=== PATIENT | male | born 1985 | race Caucasian/White ===

== ENCOUNTER → 2016-12-02 | Day surgery (SDC) | payer OTHER ==
[~2016-12-02] VITALS: Ht 182.9 cm; Wt 89.8 kg
[~2016-12-02] MED LIST: ACETAMINOPH W/CODEINE #3 TAB UD PO PRN; EPINEPHrine 1MG/ML INJ 30ML MD-VIAL As Ordered ONE; GLYCOPYRROLATE INJ 0.2 MG/ML 2 ML VIAL As Ordered ONE; LIDOCAINE 2% INJ 100 MG/5 ML SDV (FOR ANES.) As Ordered ONE; LIDOCAINE W/EPINEPHRINE 1% 20ML VIAL As Ordered ONE; LR 1,000 ML IV ONE; LR 1,000 ML IV SCH; METHYLENE BLUE 0.5% (5MG/ML) 10 ML AMP (PROVAYBLUE)(Q9968 PER 1MG) As Ordered ONE; MIDAZOLAM INJ 2 MG/2 ML VIAL (J2250) As Ordered ONE; MORPHINE 10 MG/ML 1ML VIAL IV PRN; NEOSTIGMINE 1MG/ML 5 ML SYRINGE (J2710) As Ordered ONE; NORC1TAB4 PO; ONDANSETRON 4MG/2ML VIAL (J2405) As Ordered ONE; ONDANSETRON 4MG/2ML VIAL (J2405) IV PRN; PERCOCET 5MG/325MG TAB PO PRN; PROPOFOL 200 MG/20 ML VIAL As Ordered ONE; ROCURONIUM BROMIDE 50 MG/5 ML VIAL/SYRINGE As Ordered ONE; dexameTHASONE 4 MG/ML 1ML VIAL (J1100) As Ordered ONE; fentaNYL 100 MCG/2 ML INJECTION (J3010) As Ordered ONE; fentaNYL 100 MCG/2 ML INJECTION (J3010) IV PRN
--- NOTE | 2016-12-02 08:33 | RO ---
DATE OF PROCEDURE: 12/02/2016 PREOPERATIVE DIAGNOSIS: Nasal septal deviation. POSTOPERATIVE DIAGNOSIS: Nasal septal deviation. OPERATIVE PROCEDURE: Septoplasty. SURGEON: Dr. Alvaro Winter BRANCH LEAD: ANESTHESIA: Under general anesthesia with the patient intubated, the patient was draped in the usual manner. I used pledgets of adrenaline 1:1000 and infiltrated with lidocaine with epinephrine. I made an incision anteriorly on the left side and elevated a subperichondrial and periosteal plane. I then elevated the periosteum off of the maxillary crest and vomer. I removed portions of the maxillary crest, ethmoid plate and vomer which were deviated. Once this was done, the septum was straight. I closed the incision with interrupted #4-0 chromic. The patient tolerated the procedure well. Less than 20 mL estimated blood loss. The patient was extubated and sent to the recovery room in excellent condition.
[2016-12-02 10:00] VITALS: BP 135/66
== END | disposition home or self-care (01) ==
LOC: M SDC 06:01
PROVIDERS: ATTEND Otolaryngology
DX: J34.2 Deviated nasal septum (principal); R06.83 Snoring; F41.9 Anxiety disorder, unspecified; M54.2 Cervicalgia; F43.10 Post-traumatic stress disorder, unspecified; Z87.820 Personal history of traumatic brain injury; Z72.0 Tobacco use
CPT/HCPCS: 30520; 88300; J1100; J2250; J2405; J2710; J3010; Q9968